=== PATIENT | male | born 1970 | race Caucasian/White ===

== ENCOUNTER 2020-05-25 14:58 | Outpatient (CLI) | payer OTHER, SELFPAY ==
--- NOTE | 2020-05-25 15:10 | CTR_ITS ---
PROCEDURE INFORMATION: Exam: CT Abdomen And Pelvis With Contrast Exam date and time: 05/25/2020 3:13 PM Age: 49 years old Clinical indication: Abdominal pain; Localized; Left lower quadrant (llq); Prior surgery; Surgery type: Hernia; Patient HX: Llq abd [id number] trouble urinating; Additional info: Left lower quadrant pain, history diverticulitis TECHNIQUE: Imaging protocol: Computed tomography of the abdomen and pelvis with intravenous contrast. Radiation optimization: All CT scans at this facility use at least one of these dose optimization techniques: automated exposure control; mA and/or kV adjustment per patient size (includes targeted exams where dose is matched to clinical indication); or iterative reconstruction. Contrast material: OMNIPAQUE 300; Contrast volume: 95 ml; Contrast route: INTRAVENOUS (IV); COMPARISON: [facility] Abdomen 2 views 10/13/2018 5:11 PM RADIATION DOSE METRICS: Total DLP (mGy-cm): 1133.48 FINDINGS: Liver: Normal. No mass. Gallbladder and bile ducts: Normal. No calcified stones. No ductal dilation. Pancreas: Normal. No ductal dilation. Spleen: Normal. No splenomegaly. Adrenals: Normal. No mass. Kidneys and ureters: Left renal simple cyst measuring >1.0 cm. Stomach and bowel: Mild moderate left colon colonic diverticulosis. Appendix: No evidence of appendicitis. Intraperitoneal space: Moderate diverticulitis in the proximal sigmoid colon with significant inflammation of the 1.2 cm anterior diverticulum with no obvious perforation or free air. Vasculature: Moderate calcified coronary artery disease. Calcification of the abdominal aorta and/or iliac arteries consistent with atherosclerotic vessel disease. One or more calcified pelvic phleboliths. Lymph nodes: Unremarkable. No enlarged lymph nodes. Bladder: Unremarkable as visualized. Reproductive: Unremarkable as visualized. Bones/joints: Unremarkable. No acute fracture. Soft tissues: Umbilical/periumbilical hernia containing fat. CT/CT abdomen pelvis w con* [id number] IMPRESSION: Moderate diverticulitis in the proximal sigmoid colon with significant inflammation of the 1.2 cm anterior diverticulum with no obvious perforation or free air. COMMENTS: Consistent with the [employer]'s Incidental Findings Committee white paper (J Am Louis Radiol 2018): Any incidental renal lesion less than 1.0 cm or classified as too small to characterize, or any incidental cystic renal lesion characterized as simple-appearing, is likely benign. No follow-up imaging is recommended for these lesions per consensus recommendations based on imaging criteria. Radiation Dose CTDIVOL = (mGy): DLP = 1133.48 (mGy-cm)
[2020-05-25] MEDS: iohexol 300 mg/mL 100 mL Btl IV (16:20)
== END 2020-05-25 14:59 | disposition home or self-care (01) ==
LOC: RADWPI 15:06
PROVIDERS: Family Provider Family Medicine; PCP Family Medicine; Visit Provider Family Medicine
DX: R10.32 Left lower quadrant pain (principal)
CPT/HCPCS: 74177; Q9967

== ENCOUNTER 2021-11-04 09:34 | Outpatient (CLI) | payer OTHER, SELFPAY ==
[2021-11-04 10:14] VITALS: BP 162/98; PULSE 78; RESP 17; TEMP 36.5; O2SAT 97; BMI 37.4
[2021-11-04 11:08] VITALS: BP 145/89; PULSE 79; RESP 17; TEMP 36.6; O2SAT 96
[2021-11-04 12:08] VITALS: BP 127/85; PULSE 75; RESP 17; TEMP 36.5; O2SAT 95
== END 2021-11-04 09:35 | disposition home or self-care (01) ==
LOC: OPS 09:39
PROVIDERS: PCP Family Medicine; Visit Provider Nurse Practitioner Family
DX: U07.1 COVID-19 (principal)
CPT/HCPCS: 96365

== ENCOUNTER 2022-04-02 19:10 | Outpatient (CLI) | payer OTHER, SELFPAY | END 2022-04-02 19:11 | disposition home or self-care (01) | PROVIDERS: PCP Family Medicine; Visit Provider Nurse Practitioner | DX: R53.83 Other fatigue (principal) | CPT/HCPCS: 85378 ==

== ENCOUNTER 2022-04-04 11:44 | Outpatient (CLI) | payer OTHER, SELFPAY ==
--- NOTE | 2022-04-04 11:53 | CT_ITS ---
WS: [id number] CT scan of the chest without IV contrast, additional two-dimensional coronal and sagittal reconstruct ion was performed. 04/04/2022 Clinical Data: ELEVATED D DIMER Comparison: PA and lateral chest. DLP: 789.[address] scans at [facility] use at least one of these dose optimization techniques: automated e xposure control; mA and/or kV adjustment per patient size (includes targeted exams where dose is matc hed to clinical indication); or iterative reconstruction. Findings: No nodules, masses or effusions are seen. The heart size is normal with no pericardial effusion. Mor nary artery calcification is present. The trachea bifurcates normally into the bronchi. The pulmonary arterial system and thoracic aorta demonstrate no abnormalities or dilatations. There is no axillary or significant mediastinal adenopathy. The upper abdomen shows the visualized liver, spleen, gallbladder, adrenal glands and pancreas are un remarkable. The superior poles of the kidneys demonstrate a lateral left renal density measuring 3.8 cm. This density is lower than that of the left kidney and probably represents a cyst CT/CT chest wo con [id number] Impression: 1. Negative CT scan of the chest without IV contrast. 2. Probable 3.8 cm left renal cyst.
== END 2022-04-04 11:45 | disposition home or self-care (01) ==
LOC: RAD 11:46
PROVIDERS: PCP Family Medicine; Visit Provider Nurse Practitioner
DX: R79.1 Abnormal coagulation profile (principal)
CPT/HCPCS: 71250

== ENCOUNTER 2022-04-04 12:51 | Emergency (ER) | payer OTHER, SELFPAY ==
[2022-04-04 13:08] VITALS: BP 166/95; PULSE 68; RESP 18; TEMP 37.1; O2SAT 96; BMI 36.4
--- NOTE | 2022-04-04 14:15 | ECG_ITS ---
[facility] Test Date: 2022-04-04 Pat Name: Tacos Kraus Department: Room: Gender: Male Lease Administrator: : 1970 Requested By: Ga Murray Order Number: [id number] Low MD: Zeeshan Bedolla M.D. Measurements Intervals [place] Rate: 71 P: 39 MS: 159 QRS: 35 QRSD: 99 T: 38 QT: 371 QTc: 404 Interpretive Statements SINUS RHYTHM WITH SINUS ARRHYTHMIA No previous ECG available for comparison Electronically Signed On 04-04-2022 20:43:00 CDT by Zeeshan Bedolla M.D. [id number]
--- NOTE | 2022-04-04 14:15 | W.ED.RECABL ---
HPI - Recheck/Abnormal Lab/Rx General: Chief Complaint: Recheck/Abnormal Lab/Rx Stated Complaint: abnormal labs Time Seen by Provider: 04/04/22 14:09 History of Present Illness: 51-year-old male patient comes in today with complaints of malaise, chest discomfort, and shortness of breath since receiving his booster for COVID-19 vaccine. Patient had that done at 19 March. And for the past 2 weeks patient's had persistent symptoms. Patient sees seen by Dr. Miranda and was referred to the ER for CTA of the chest due to elevated D-dimer. Patient is alert and oriented. Patient appears in no acute distress. Patient has a history of diabetes, high cholesterol, and high blood pressure. 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 Review of Systems General: Reports: 10 or more systems reviewed and unremarkable except in HPI and below Const: Reports: fatigue and malaise; Denies: fever(s) Card: Reports: chest pain Resp: Reports: dyspnea Skin/Breast: Denies: rash Physical Exam Const: COMMON NORMALS: alert HENMT: HEAD & SCALP: normal to inspection Neck/C-Spine: COMMON NORMALS: full ROM Resp: COMMON NORMALS: normal respiratory effort and clear to auscultation bilaterally AUSCULTATION: clear to auscultation bilaterally Cardio: COMMON NORMALS: regular rate and regular rhythm RATE: regular rate RHYTHM: regular rhythm GI: COMMON NORMALS: non-tender Extremity: COMMON NORMALS: normal to inspection Neuro: SENSORIUM/ORIENTATION: Yes alert Skin: COMMON NORMALS: no rashes or lesions noted GENERAL SKIN EXAM: no rashes or lesions noted Course Vital Signs: Vital signs: Vital Signs Temperature 98.8 F 04/04/22 13:08 Pulse Rate 68 04/04/22 13:08 Respiratory Rate 18 04/04/22 13:08 Blood Pressure 166/95 04/04/22 13:08 Pulse Oximetry 96 04/04/22 13:08 MDM - Recheck/Abnormal Lab/Rx Medical Decision Making 51-year-old male patient comes in today for elevated D-dimer and need for CTA of chest to rule out PE. Patient since the first of the month has had shortness of breath and fatigue after receiving a COVID-19 booster vaccine. On exam respirations were even lungs were clear to auscultation. Vital signs were normal except for some elevation of blood pressure at 166/95. Bilateral lower extremities noted no swelling or redness. Differential diagnosis includes but not limited to depression, chronic fatigue syndrome, malingering, PE, viral syndrome. Laboratory values were unremarkable. Troponin was negative. D-dimer was 1.25. CT a of the chest noted no pulmonary embolisms or lung abnormalities. Reviewed exam with patient's spouse and himself with recommendation to follow-up with primary care for further instructions. Patient and spouse both reported understanding and need for follow-up or return to the ER for worsening symptoms such as high fever, increased shortness of breath, or severe chest pain. Lab Data : 04/04/22 14:41 04/04/22 14:41 Radiology Impressions Chest CTA 04/04/22 14:25 IMPRESSION: 1. No acute PE or significant lung abnormalities. 2. Coronary calcifications. Laboratory Results WBC 7.5 10^3/uL (4.0-10.0) 04/04/22 14:41 RBC 4.45 10^6/uL (4.1-5.3) 04/04/22 14:41 Hgb 14.1 g/dL (11.7-16.6) 04/04/22 14:41 Hct 40.2 % (42.0-52.0) L 04/04/22 14:41 MCV 90.3 fl (80-94) 04/04/22 14:41 MCH 31.7 pg (28.0-34.0) 04/04/22 14:41 MCHC 35.1 g/dL (30.0-36.0) 04/04/22 14:41 RDW 11.7 % (12.1-15.1) L 04/04/22 14:41 Plt Count 205 10^3/cmm (130-400) 04/04/22 14:41 MPV 10.3 fL (7.4-10.4) 04/04/22 14:41 Neut % (Auto) 87.6 % 04/04/22 14:41 Lymph % (Auto) 10.3 % 04/04/22 14:41 [place] % (Auto) 1.7 % 04/04/22 14:41 Eos % (Auto) 0.0 % 04/04/22 14:41 Baso % (Auto) 0.1 % 04/04/22 14:41 Neut # (Auto) 6.55 10^3/uL (1.8-7.7) 04/04/22 14:41 Lymph # (Auto) 0.8 10^3/uL (0.8-4.8) 04/04/22 14:41 [place] # (Auto) 0.1 10^3/uL (0.2-0.9) L 04/04/22 14:41 Eos # (Auto) 0.0 10^3/uL (0.0-0.8) 04/04/22 14:41 Baso # (Auto) 0.0 10^3/uL (0.0-0.1) 04/04/22 14:41 Nucleated RBC % (auto) 0 % 04/04/22 14:41 Nucleated RBCs # 0.0 /100WBC 04/04/22 14:41 PT 13.50 SECONDS (12.1-14.9) 04/04/22 14:41 INR 1.00 (0.8-1.2) 04/04/22 14:41 APTT 27.4 SECONDS (23.9-36.7) 04/04/22 14:41 D-Dimer 1.25 ug/mIFEU (0-0.59) H 04/04/22 14:41 Sodium 138 mmol/L (136-145) 04/04/22 14:41 Potassium 4.4 mmol/L (3.5-5.1) 04/04/22 14:41 Chloride 102 mmol/L (98-107) 04/04/22 14:41 Carbon Dioxide 22 mmol/L (22-29) 04/04/22 14:41 Anion Gap 18.4 (5-19) 04/04/22 14:41 BUN 13 mg/dL (6-20) 04/04/22 14:41 Creatinine 0.7 mg/dL (0.7-1.2) 04/04/22 14:41 GFR Calculation 118.0 mL/min (90-130) 04/04/22 14:41 Calculated Osmolality 291 mOsm/kg (285-295) 04/04/22 14:41 Calcium 9.2 mg/dL (8.5-10.5) 04/04/22 14:41 Magnesium 2.1 mg/dL (1.7-2.3) 04/04/22 14:41 Total Bilirubin 0.3 mg/dL (0.15-1.2) 04/04/22 14:41 AST 24 U/L (0-40) 04/04/22 14:41 ALT 32 U/L (0-41) 04/04/22 14:41 Alkaline Phosphatase 68 IU/L (40-130) 04/04/22 14:41 Troponin T Gen 5 ng/L 7 ng/L (0-15) 04/04/22 14:41 Total Protein 6.8 g/dL (6.6-8.7) 04/04/22 14:41 Albumin 4.6 g/dL (3.5-5.2) 04/04/22 14:41 Globulin 2.2 g/dL (1.3-4.6) 04/04/22 14:41 TSH 1.94 uIU/mL (0.27-4.20) 04/04/22 14:41 EKG Data EKG 1: EKG interpretation date: 04/04/22 EKG interpretation time: 14:41 Interpretation: EKG shows a regular rate at 71 bpm with mild sinus arrhythmia. No ST elevation or ectopy is noted. Prior exam was not available for comparison. Discharge Plan Discharge Patient Disposition: Home Clinical Impression: Abnormal laboratory test Fatigue Qualifiers: Fatigue type: unspecified Qualified Code(s): R53.83 - Other fatigue Condition: Stable Prescriptions: No Action prednisone 20 mg Tablet 40 mg PO QAM 0RF Aspir-81 81 mg Tablet,Delayed Release (Dr/Ec) 81 mg PO .OCCASIONALLY 0RF lisinopril 2.5 mg Tablet 2.5 mg PO QAM 0RF vitamin E 400 unit Capsule 400 unit PO BID 0RF Crestor 10 mg Tablet 10 mg PO QAM 0RF metformin 500 mg Tablet Extended Release 24hr 500 mg PO BID 0RF Discharge Orders: Discharge ED (Routine); Ordered 04/04/22 Ordered By: Ga Fulton Referrals: Triston Miranda MD [Primary Care Provider] - Discharge Diet: Usual diet Discharge Activity: Increase activity as tolerated Patient Instructions: Fatigue (ED) Activity Restrictions/Additional Instructions: Home and rest. Drink plenty of fluids. Continue routine care as directed by Dr. Miranda and staff. Follow-up with primary care in 3 to 5 days for recheck. Return to ER for worsening symptoms such as fever greater than 100.4, chest pain, inability to hold fluids down. Coding Level of Care Code ED Printing Specialist for [employer] Fwd Exam Comprehensive
--- NOTE | 2022-04-04 14:25 | CTR_ITS ---
PROCEDURE INFORMATION: Exam: CTA Chest With Contrast Exam date and time: 04/04/2022 2:52 PM Age: 51 years old Clinical indication: Pain and condition or disease; Other: Elevated d dimer; Chest pressure; Additional info: Elevated d dimer, malaise, dyspnea TECHNIQUE: Imaging protocol: Computed tomographic angiography of the chest with contrast. 3D rendering (Not supervised by radiologist): MIP and/or 3D reconstructed images were created by the technologist. Radiation optimization: All CT scans at this facility use at least one of these dose optimization techniques: automated exposure control; mA and/or kV adjustment per patient size (includes targeted exams where dose is matched to clinical indication); or iterative reconstruction. Contrast material: OMNI 350; Contrast volume: 76 ml; Contrast route: INTRAVENOUS (IV); COMPARISON: CT chest [facility] [id number] 04/04/2022 12:09 PM RADIATION DOSE METRICS: Total DLP (mGy-cm): 548.98 FINDINGS: Pulmonary arteries: Normal. No pulmonary emboli. Aorta: No aortic aneurysm. No aortic dissection. Lungs: Unremarkable. No consolidation. No masses. Pleural spaces: Unremarkable. No pneumothorax. No pleural effusion. Heart: Normal heart size with coronary calcification. Lymph nodes: Unremarkable. No enlarged lymph nodes. Bones/joints: No acute fracture. Soft tissues: Unremarkable. CT/CT angio chest PE protcl [id number] IMPRESSION: 1. No acute PE or significant lung abnormalities. 2. Coronary calcifications.
[2022-04-04] MEDS: iohexol 350 mg/mL 100 mL Btl IV (14:52)
[2022-04-04 14:53] LABS: Basophils % 0.1 %; Hematocrit 40.2 % (42.0-52.0); Hemoglobin 14.1 g/dL (11.7-16.6); Lymphocytes # 0.8 10^3/uL (0.8-4.8); Lymphocytes % 10.3 %; Mean Corpuscular HGB Conc 35.1 g/dL (30.0-36.0); Mean Corpuscular Hemoglobin 31.7 pg (28.0-34.0); Mean Corpuscular Volume 90.3 fl (80-94); Mean Platelet Volume 10.3 fL (7.4-10.4); Monocytes # 0.1 10^3/uL (0.2-0.9); Monocytes % 1.7 %; Neutrophils # 6.55 10^3/uL (1.8-7.7); Neutrophils % 87.6 %; Nucleated Red Blood Cells % 0 %; Platelet Count 205 10^3/cmm (130-400); Red Blood Count 4.45 10^6/uL (4.1-5.3); Red Cell Distribution Width 11.7 % (12.1-15.1); White Blood Count 7.5 10^3/uL (4.0-10.0)
[2022-04-04 15:08] LABS: Partial Thromboplastin Time 27.4 SECONDS (23.9-36.7)
[2022-04-04 15:10] LABS: D Dimer 1.25 ug/mIFEU (0-0.59)
[2022-04-04 15:17] LABS: Troponin T (5th) Once 7 ng/L (0-15)
[2022-04-04 15:24] LABS: Alanine Aminotransferase 32 U/L (0-41); Albumin Level 4.6 g/dL (3.5-5.2); Alkaline Phosphatase 68 IU/L (40-130); Anion Gap 18.4 (5-19); Aspartate Amino Transferase 24 U/L (0-40); Blood Urea Nitrogen 13 mg/dL (6-20); Calcium 9.2 mg/dL (8.5-10.5); Carbon Dioxide 22 mmol/L (22-29); Chloride 102 mmol/L (98-107); Globulin 2.2 g/dL (1.3-4.6); Glucose 181 mg/dL (65-115); Magnesium 2.1 mg/dL (1.7-2.3); Osmolality Calculated 291 mOsm/kg (285-295); Potassium 4.4 mmol/L (3.5-5.1); Sodium 138 mmol/L (136-145); Thyroid Stimulating Hormone 1.94 uIU/mL (0.27-4.20); Total Bilirubin 0.3 mg/dL (0.15-1.2); Total Protein 6.8 g/dL (6.6-8.7)
[2022-04-04 15:47] VITALS: BP 118/59; PULSE 72; RESP 16; O2SAT 95
== END 2022-04-04 15:48 | disposition home or self-care (01) ==
PROVIDERS: Emergency Provider Nurse Practitioner Family; PCP Family Medicine
DX: R79.1 Abnormal coagulation profile (principal); R06.00 Dyspnea, unspecified; R53.83 Other fatigue; Z79.82 Long term (current) use of aspirin
CPT/HCPCS: 71275; 80053; 83735; 84443; 84484; 85025; 85378; 85610; 85730; 93005; 99284; Q9967